=== PATIENT | male | born 1970 | race Caucasian/White ===

== ENCOUNTER 2019-05-02 07:28 | Outpatient (CLI) | payer MEDICARE ==
[2019-05-02 08:24] LABS: Estimated GFR-MDRD - POC Greater than 90
--- NOTE | 2019-05-02 10:17 | MRI ---
MRI BRAIN AND INTERNAL AUDITORY CANALS WITH AND WITHOUT CONTRAST: DATE: 05/02/2019. HISTORY: A 48-year-old male with ICD-10: H81.13, benign paroxysmal vertigo of both ears. TECHNIQUE: Multiple sequences obtained in axial, sagittal, and coronal planes; both whole brain images and thin slices through the IAC's, pre and post IV injection of gadolinium-based contrast agent: 16 mL MultiHa nce. FINDINGS: The thin slices through the IACs are degraded by patient motion. The ventricles are normal in size a nd configuration. There is no restricted diffusion, abnormal intraaxial enhancement, mass, midline s hift or any other mass effect, recent intraaxial hemorrhage, or extraaxial fluid collection. There is a mild to moderate degree of T2-hyperintensities in the cerebral white matter consistent with chroni c ischemic white matter changes due to microvascular atherosclerosis. There is no abnormal enhancement, mass, or morphologic abnormality, involving the cerebellopontine an gles, 7th-8th nerve complexes, internal auditory canals, cochleae, vestibules, vestibular aqueducts, or semicircular canals. IMPRESSION: 1. Mild-moderate chronic ischemic white matter changes. 2. Otherwise negative. jn[] POS: [place]
== END 2019-05-02 07:29 | disposition home or self-care (01) ==
LOC: BICMRI 07:28
PROVIDERS: ATTEND Specialist
DX: H81.13 Benign paroxysmal vertigo, bilateral (principal)
CPT/HCPCS: 70553; 82565